=== PATIENT | female | born 1980 | race Hispanic/Latino ===

== ENCOUNTER 2019-02-15 03:05 | Inpatient (IN) | payer BC ==
[2019-02-15] MEDS ORDERED: hydrALAZINE 20 MG/ML VIAL SLOW IVP PRN ×2 (03:34→16:33)
[2019-02-15] MEDS: Lactated Ringer's 1,000 ML IV SCH ×2 (05:00→10:10)
[2019-02-15] MEDS ORDERED: Butorphanol Tartrate 1 MG/ML VIAL ONE (05:18)
[2019-02-15] MEDS: Butorphanol Tartrate 1 MG/ML VIAL SLOW IVP PRN ×5 (05:23→13:47)
[2019-02-15] MEDS ORDERED: Acetaminophen 500 MG TAB PO SCH ×2 (05:30→14:00)
[2019-02-15] MEDS: Ampicillin 2 GM in Sodium Chloride 0.9% 100 ML IVPB SCH ×2 (05:54→11:56)
[2019-02-15 06:05] VITALS: BMI 34.9
--- NOTE | 2019-02-15 07:53 | ULT ---
PRELIMINARY REPORT/[facility]/EMERGENCY AFTER OURS PROCEDURE: PROCEDURE INFORMATION: Exam: US , Limited Exam date and time: 02/15/2019 4:03 AM Age: 38 years old Clinical history: complicated by abdominal or pelvic pain; Lower; Second trimester; Gestati onal age or lmp: 07/08/19; ; Patient HX: Pelvic cramping pain tonight TECHNIQUE: Imaging protocol: Real-time ultrasound of the maternal uterus with image documentation. Exam focused on the clinical indication. COMPARISON: No relevant prior studies available. FINDINGS: GESTATION: Gestation: There is a live intra-uterine . Presentation: Fetus is in breech position. Placenta: Placenta is anterior. Amniotic fluid: There is oligohydramnios with amniotic fluid index measured 3.9 cm. BIOMETRY: Estimated gestational age: Estimated gestational age is 19 weeks 1 day based on femoral length. MATERNAL: Cervix: The cervix appears incompetent with fluid in the vaginal canal with length of 0.7 cm. there i s fluid sac extending through the cervical canal into the vagina consistent with amniotic sac herniatio n. IMPRESSION: 1. Incompetent cervix with herniation of the amniotic sac into the vaginal canal without herniation o f parts. 2. Oligohydramnios is noted. COMMENT: THIS REPORT CONTAINS FINDINGS THAT MAY BE CRITICAL TO PATIENT CARE. The findings were verbally commun icated via telephone conference with Dr. Clark at 4:47 AM STRADD[facility] BUG on 02/15/2019 who notes that there is fluid sac herniating through the vaginal canal without rupture. The findings were acknowledged and understood. Thank you for allowing us to participate in the care of your patient. Dictated and Authenticated by: Fede Peña MD 02/15/2019 4:50 AM Central Time ([place] & [place]) FINAL REPORT LIMITED OB ULTRASOUND: I agree with the report given by VR. heart rate measures 153 bpm. measurements as follows: BPD: 4.48 cm, 19 weeks 4 days HC: 17.56 cm, 20 weeks 0 days AC: 14.39 cm, 19 weeks 5 days FL 2.95 cm, 19 weeks 1 day. The estimated age measures 19 weeks 4 days with an OSMAR of 07/08/2019. The estimated weight measures 296 g. Transcribed Date/Time: 02/15/2019 8:02 AM
[2019-02-15] MEDS ORDERED: Ondansetron PF 4 MG/2 ML Vial IVP PRN (08:53)
[2019-02-15] MEDS ORDERED: Zolpidem Tartrate 5 MG TAB PO PRN ×2 (08:53→16:33)
[2019-02-15 09:24] VITALS: TEMP 98.8
[2019-02-15] MEDS ORDERED: Butorphanol Tartrate 1 MG/ML VIAL SLOW IVP PRN (13:53)
[2019-02-15] MEDS: Acetaminophen 500 MG TAB PO SCH ×2 (13:53→17:23)
[2019-02-15] MEDS ORDERED: Promethazine HCl 25 MG/ML VIAL IM SCH (14:00)
[2019-02-15 15:05] LABS: #Eosinphils 0.1 thou/uL (0.0-0.7); #Lymphocytes 1.7 thou/uL (1.20-3.40); #Monocytes 1.1 thou/uL (0.11-0.59); #Neutrophils 13.7 thou/uL (1.40-6.50); %Basophils 0.2 % (0.0-1.0); %Eosinophils 0.5 % (0.0-10.0); %Lymphocytes 10.4 % (21.0-51.0); %Monocytes 6.4 % (0.0-10.0); %Neutrophils 82.4 % (42.0-75.0); Hemoglobin 12.9 g/dL (12.0-16.0); Mean Corpuscular HGB CONC 34.4 g/dL (32.0-36.0); Mean Corpuscular Hemoglobin 30.9 pg (27.0-31.0); Mean Platelet Volume 7.4 fL (7.4-10.4); Platelet Count 262 thou/uL (130-400); RBC Distribution Width 11.2 % (11.5-14.5); Red Blood Cell (RBC) Count 4.16 mill/uL (4.20-5.40); White Blood Cell (WBC) Count 16.6 thou/uL (4.8-10.8)
[2019-02-15] MEDS ORDERED: Misoprostol 200 MCG TAB ONE (15:15)
[2019-02-15] MEDS ORDERED: Misoprostol 200 MCG TAB PR SCH (15:30)
[2019-02-15] MEDS ORDERED: NS / Oxytocin 40 units/1000ml 1,000 ML ONE (16:10)
[2019-02-15 16:28] LABS: Hemoglobin 11.3 g/dL (12.0-16.0); Mean Corpuscular HGB CONC 34.5 g/dL (32.0-36.0); Mean Corpuscular Hemoglobin 31.1 pg (27.0-31.0); Mean Corpuscular Volume 90.1 fL (78.0-98.0); Mean Platelet Volume 7.4 fL (7.4-10.4); Platelet Count 289 thou/uL (130-400); RBC Distribution Width 11.1 % (11.5-14.5); Red Blood Cell (RBC) Count 3.63 mill/uL (4.20-5.40); White Blood Cell (WBC) Count 21.1 thou/uL (4.8-10.8)
[2019-02-15] MEDS ORDERED: Bisacodyl 10 MG SUPP PR PRN (16:33)
[2019-02-15] MEDS ORDERED: Misoprostol 200 MCG TAB VAG PRN (16:33)
[2019-02-15] MEDS ORDERED: Milk Of Magnesia 30 ML UDCUP PO PRN (16:33)
[2019-02-15] MEDS ORDERED: Acetaminophen/Codeine 30-300mg Tablet PO PRN ×2 (16:33)
[2019-02-15] MEDS ORDERED: NS / Oxytocin 40 units/1000ml 1,000 ML IV SCH (16:45)
[2019-02-15] MEDS ORDERED: Ferrous Sulfate 325 MG TAB PO SCH (17:00)
[2019-02-15 20:35] LABS: Hemoglobin 9.9 g/dL (12.0-16.0); Mean Corpuscular HGB CONC 34.3 g/dL (32.0-36.0); Mean Corpuscular Volume 90.5 fL (78.0-98.0); Mean Platelet Volume 7.1 fL (7.4-10.4); Platelet Count 232 thou/uL (130-400); RBC Distribution Width 11.2 % (11.5-14.5); Red Blood Cell (RBC) Count 3.19 mill/uL (4.20-5.40); White Blood Cell (WBC) Count 20.8 thou/uL (4.8-10.8)
[2019-02-15] MEDS ORDERED: Docusate Calcium (SURFAK) 240 MG CAP PO SCH (21:00)
[2019-02-16] MEDS: Lactated Ringer's 1,000 ML IV SCH (03:14)
[2019-02-16 09:40] LABS: Hemoglobin 8.2 g/dL (12.0-16.0); Mean Corpuscular HGB CONC 34.8 g/dL (32.0-36.0); Mean Corpuscular Hemoglobin 31.7 pg (27.0-31.0); Mean Corpuscular Volume 90.9 fL (78.0-98.0); Platelet Count 195 thou/uL (130-400); RBC Distribution Width 11.2 % (11.5-14.5); Red Blood Cell (RBC) Count 2.58 mill/uL (4.20-5.40); White Blood Cell (WBC) Count 12.9 thou/uL (4.8-10.8)
[2019-02-16] MEDS ORDERED: Adacel (T-DAP) 0.5 ML SYRINGE IM ONE (16:33)
== END 2019-02-16 16:13 | disposition home or self-care (01) | DRG 831 ==
LOC: L&D/OP 03:05 → L&D 10:16
PROVIDERS: ADMIT Obstetrics & Gynecology; ATTEND Obstetrics & Gynecology
PROC: 10E0XZZ Delivery of Products of Conception, External Approach (ICD-10-PCS; principal; 2019-02-15)
PROC: 3E0P7VZ Introduction of Hormone into Female Reproductive, Via Natural or Artificial Opening (ICD-10-PCS; 2019-02-15)
PROC: 3E033VJ Introduction of Other Hormone into Peripheral Vein, Percutaneous Approach (ICD-10-PCS; 2019-02-15)
DX: O20.0 Threatened abortion (principal); O34.32 Maternal care for cervical incompetence, second trimester; O72.1 Other immediate postpartum hemorrhage
CPT/HCPCS: 36415; 51702; 76815; 85025; 85027; 86850; 86900; 86901; 87070; 87077; 87480; 87510; 87660; 99285; J0290; J0595; J2175; J2550; J3490

== ENCOUNTER 2019-03-07 06:59 | Emergency (ER) | payer BC ==
[2019-03-07] MEDS ORDERED: Ondansetron PF 4 MG/2 ML Vial ONE (07:29)
[2019-03-07] MEDS ORDERED: Morphine 4 MG/ML VIAL ONE (07:29)
[2019-03-07 07:57] LABS: #Basophils 0.1 thou/uL (0.0-0.2); #Eosinphils 0.2 thou/uL (0.0-0.7); #Lymphocytes 2.4 thou/uL (1.20-3.40); #Monocytes 0.5 thou/uL (0.11-0.59); #Neutrophils 6.3 thou/uL (1.40-6.50); %Basophils 0.7 % (0.0-1.0); %Eosinophils 2.4 % (0.0-10.0); %Lymphocytes 25.2 % (21.0-51.0); %Neutrophils 66.7 % (42.0-75.0); Hemoglobin 9.7 g/dL (12.0-16.0); Mean Corpuscular HGB CONC 32.9 g/dL (32.0-36.0); Mean Corpuscular Hemoglobin 29.4 pg (27.0-31.0); Mean Corpuscular Volume 89.2 fL (78.0-98.0); Mean Platelet Volume 7.5 fL (7.4-10.4); Platelet Count 389 thou/uL (130-400); RBC Distribution Width 11.7 % (11.5-14.5); White Blood Cell (WBC) Count 9.5 thou/uL (4.8-10.8)
--- NOTE | 2019-03-07 09:30 | ULT ---
TRANSABDOMINAL PELVIC ULTRASOUND: INDICATIONS: Emergency examination for pelvic pain. COMPARISON: Prior obstetrical ultrasound dated 02/15/2019. TECHNIQUE: Salazar-scale and color Doppler images with spectral Doppler imaging was performed of the pelvis via tra nsabdominal approach. FINDINGS: Transabdominal images slightly limit image detail. The uterus in the sagittal projection measures 9.2 x 5.2 cm. The transverse dimension of the uterus is 6.9 cm. The endometrial stripe measured 1.4 cm. Previously seen intrauterine gestation is no longer identified. No free fluid is noted. The left and right ovary demonstrate normal vascular flow. The left ovary measured 2.6 x 1.7 x 2 cm. The right ova ry measured 2.8 x 1.8 x 1.9 cm. No free fluid is identified. IMPRESSION: 1. Previously seen intrauterine gestation is no longer identified. No retained products of conception are demonstrated. 2. No acute sonographic abnormality seen within the pelvis. POS: CET
[2019-03-09 17:33] LABS: Chlamydia by PCR Not Detected (NotDetected); GC by PCR Not Detected (NotDetected)
== END 2019-03-07 11:28 | disposition home or self-care (01) ==
LOC: ERS 06:59
DX: O72.2 Delayed and secondary postpartum hemorrhage (principal)
CPT/HCPCS: 76856; 84702; 85025; 86900; 86901; 87480; 87491; 87510; 87591; 87660; 93976; 96374; 96375; J2270; J2405